=== PATIENT | female | born 1960 | race Caucasian/White ===

== ENCOUNTER 2017-09-02 08:43 | Outpatient (CLI) | payer OTHER ==
--- NOTE | 2017-09-06 12:08 | MMO ---
BILATERAL SCREENING MAMMOGRAMS: Date: 09-02-17 This study is interpreted with the assistance of computer aided detection. Comparison: Prior studies are unable to be located, so this will serve as the patient's baseline scre ening exam. FINDINGS: There are bilateral subglandular breasts prostheses in place which have a symmetric appearance bilate rally. There is a heterogeneously dense parenchymal pattern which may lower the sensitivity of mammog melissa. There is suggestion of an isodense mass within the retroareolar region right breast, slightly medially located which could be related to superimposition of breast parenchyma. A mass with obscured margins is a possibility. No suspicious grouping of microcalcifications are seen in either breast. IMPRESSION: BIRADS category 0 - incomplete assessment. Additional imaging is required. Spot magnification and com pression in CC and MLO views right breast in addition to 90 degree medial and lateral view are recomm ended for further evaluation versus 3D mammography. POS: SAMI
== END 2017-09-02 08:44 | disposition home or self-care (01) ==
LOC: SCSMAMMO 08:43
PROVIDERS: ATTEND Internal Medicine
DX: Z12.31 Encounter for screening mammogram for malignant neoplasm of breast (principal)
CPT/HCPCS: 77067

== ENCOUNTER 2017-09-17 08:14 | Outpatient (CLI) | payer OTHER | END 2017-09-17 08:15 | disposition home or self-care (01) | LOC: BICMAMMO 08:14 | PROVIDERS: ATTEND Internal Medicine | DX: N64.89 Other specified disorders of breast (principal) | CPT/HCPCS: G0279 ==

== ENCOUNTER 2017-10-05 07:34 | Day surgery (SDC) | payer OTHER ==
[2017-10-04 12:32] VITALS: BMI 19.8
--- NOTE | 2017-10-05 05:18 | HP ---
SHORT STAY HISTORY AND PHYSICAL DATE OF ADMISSION: 10/05/2017 HISTORY OF PRESENT ILLNESS: This is a 57-year-old female comes for a colonoscopy for colon cancer screening. The patient has no specific reason. She has a family history of colon cancer. ALLERGIES: SULFA. SOCIAL HISTORY: The patient is a smoker. Smokes a packet of cigarettes per day. No alcohol intake. MEDICAL ILLNESSES: None. SURGERIES: 1. . 2. Tubal ligation. PHYSICAL EXAMINATION: VITAL SIGNS: Pulse is 70, blood pressure 130/80. HEENT: Conjunctivae clear. CARDIOVASCULAR SYSTEM: First and second heart sounds normal. LUNGS: Clear to auscultation. ABDOMEN: Soft to palpate. No organomegaly. No tenderness. No masses. ADMITTING DIAGNOSIS: A 57-year-old female comes for a colonoscopy for colon cancer screening.
--- NOTE | 2017-10-05 12:08 | OP ---
DATE OF PROCEDURE: 10/05/2017 SURGEON: Yunior Saxena M.D. OPERATIVE PROCEDURE: 1. Colonoscopy with polypectomy. 2. Colonoscopy with 7 Mongolian heater probe therapy. PREOPERATIVE DIAGNOSIS: Colon cancer screening. POSTOPERATIVE DIAGNOSES: 1. Very large broad based sessile polyp proximal transverse colon and hepatic flexure. 2. Hemorrhoids. PROCEDURE IN DETAIL: The patient was placed on her left lateral position and was given sedation by A nesthesia Department. A rectal exam was done before the scope was advanced into the rectum. No lesi ons felt on rectal exam. A Pentax video colonoscope was introduced into the rectum and advanced all the way into the cecum. The mucosa appears normal throughout the colon. The appendical orifice, ile ocecal valve, cecum, no pathology seen. The ascending colon, no pathology seen. Over the proximal t ransverse colon, hepatic flexure, the patient found to have broad based sessile polyp. The polyp rem remigio with cautery. Post-polypectomy, there was mild oozing of blood noted in 2 different locations. Both areas cauterized with 7 Mongolian heater probe with good hemostasis. The remainder the transverse colon, splenic flexure, descending colon, sigmoid colon, no pathology seen. Rectum showed hemorrhoi ds. DISCHARGE PLANNING: This is a 57-year-old female who came in for colonoscopy for colon can cer screening. She underwent polypectomy and also the polypectomy site had to be cauterized because of mild bleeding. The polyp was actually very broad based and sessile. DISCHARGE RECOMMENDATIONS: 1. The patient advised to call me if she does have abdominal pain and hematochezia. 2. In the absence of any of her symptoms she is to come back to me in 2 weeks.
== END 2017-10-05 11:15 | disposition home or self-care (01) ==
LOC: SDC 07:34
PROVIDERS: ATTEND Internal Medicine Gastroenterology
PROC: 0D5L8ZZ Destruction of Transverse Colon, Via Natural or Artificial Opening Endoscopic (ICD-10-PCS; principal; 2017-10-05)
DX: Z12.11 Encounter for screening for malignant neoplasm of colon (principal); D12.3 Benign neoplasm of transverse colon; K64.9 Unspecified hemorrhoids; F17.210 Nicotine dependence, cigarettes, uncomplicated; Z88.2 Allergy status to sulfonamides
CPT/HCPCS: 88305

== ENCOUNTER 2017-12-13 10:20 | Emergency (ER) | payer OTHER ==
--- NOTE | 2017-12-13 11:26 | RAD ---
LEFT LEG 2 VIEW SERIES: Date: 12/13/17 INDICATION: Pain, injury, edema. FINDINGS: Osseous structures of the left leg are intact without fracture or dislocation. IMPRESSION: No acute osseous abnormality of the left leg. POS: SAMI
--- NOTE | 2017-12-13 12:08 | ULT ---
ULTRASOUND WITH DOPPLER DUPLEX VENOUS LOWER EXTREMITY LEFT: INDICATION: Pain, edema left lower extremity. TECHNIQUE: Color flow Doppler, spectral waveform analysis of pulsed Doppler, and holder-scale imaging with chet juan carlos and augmentation, were used to evaluate the left common femoral, femoral, popliteal, posterior t ibial, and superficial femoral, veins; and the proximal portions of the profunda femoral and greater saphenous, veins. FINDINGS: Appropriate compressibility and flow within the imaged deep vein system of the left lower extremity. IMPRESSION: No deep venous thrombosis of the visualized left lower extremity. POS: SAMI
== END 2017-12-13 11:38 | disposition home or self-care (01) ==
LOC: SCSER 10:20
DX: M79.662 Pain in left lower leg (principal); F17.210 Nicotine dependence, cigarettes, uncomplicated